=== PATIENT | female | born 1955 | race Caucasian/White ===

== ENCOUNTER 2017-06-01 09:48 | Day surgery (SDC) | payer OTHER ==
[~2017-06-01 09:48] MED LIST: LACTATED RINGERS 1,000 ML IV SCH; LIDOCAINE 1% 20 ML VIAL (10MG/ML) FOR IV START INTRADERMA PRN
[2017-06-01 10:56] VITALS: RESP 16; TEMP 97.2
[2017-06-01] MEDS ORDERED: PROPOFOL 10 MG/ML 20 ML VIAL IV ONE (11:04)
--- NOTE | 2017-06-01 11:34 | P.PCN ---
Date of Procedure: 06/01/17 Procedure(s) Performed: BRIEF HISTORY: Patient is a 61-year-old pleasant white female, scheduled for an elective colonoscopy as a part of screening for colorectal rectal neoplasia. PROCEDURE PERFORMED: Colonoscopy. PREOPERATIVE DIAGNOSIS: Screening for colon cancer]. IV sedation per Anesthesia. PROCEDURE: After informed consent was obtained, the patient, was brought into the endoscopy unit. IV sedation was administered by Anesthesia under continuous monitoring. Digital rectal examination was normal. Initially the Olympus CF- 160 flexible video colonoscope was then inserted in the rectum, gradually advanced into the cecum without any difficulty. Careful examination was performed as the scope was gradually being withdrawn. Ileocecal valve and the appendiceal orifice were visualized and appeared normal. Prep was excellent. Mucosa of the cecum, ascending colon, transverse colon, descending colon, sigmoid colon, and rectum appeared normal. Retroflexion was performed in the rectum and no lesions were seen. The patient tolerated the procedure well. IMPRESSION: Normal-appearing colon from rectum to cecum with no evidence of colorectal neoplasia. RECOMMENDATIONS: Findings of this examination were discussed with the patient as well as a family. She was advised to have a repeat screening colonoscopy in 10 years.
[2017-06-01 12:03] VITALS: BP 152/77; PULSE 51
== END 2017-06-01 12:23 | disposition home or self-care (01) ==
LOC: ORWHC2ENDO 09:48
PROVIDERS: ATTEND Internal Medicine Gastroenterology
DX: Z12.11 Encounter for screening for malignant neoplasm of colon (principal); I10 Essential (primary) hypertension; Z79.899 Other long term (current) drug therapy
CPT/HCPCS: J2704; G0121; 45378

== ENCOUNTER → 2017-06-19 | Outpatient (CLI) | payer OTHER ==
--- NOTE | 2017-06-19 08:22 | MM ---
Reason for exam: additional evaluation requested from abnormal screening. Last mammogram was performed less than 1 month ago. History: Patient is postmenopausal. Family history of breast cancer in maternal aunt. Physical Findings: Nurse did not find any significant physical abnormalities on exam. MG 3D Work Up W/Cad RT ML, ML with magnification, and CC with magnification view(s) were taken of the right breast. Prior study comparison: June 07, 2017, bilateral MG 3d screening mammo w/cad. May 22, 2016, bilateral MG 3d screening mammo w/cad. The breast tissue is heterogeneously dense. This may lower the sensitivity of mammography. Right upper outer quadrant calcifications are retrospectively similar to 2015, rounded in morphology and appear benign. These results were verbally communicated with the patient and result sheet given to the patient on 06/19/17. ASSESSMENT: Benign, BI-RAD 2 RECOMMENDATION: Return to routine screening mammogram schedule for both breasts.
== END | disposition home or self-care (01) ==
LOC: RADMAMWWP 07:00
PROVIDERS: ATTEND Family Medicine
DX: R92.8 Other abnormal and inconclusive findings on diagnostic imaging of breast (principal)
CPT/HCPCS: 77065; G0279

== ENCOUNTER 2017-08-21 11:45 | Inpatient (IN) | payer OTHER ==
[2017-08-21 11:59] LABS: Glucose,Whole Blood 70 mg/dL (75-99)
[2017-08-21] MEDS ORDERED: LABETALOL 5 MG/ML VIAL MDV IVP STA (12:01)
[2017-08-21 12:11] LABS: Basophils % (A) 0 %; Eosinophils # (A) 0.2 k/uL (0-0.7); Eosinophils % (A) 3 %; HCT 40.9 % (34.0-46.0); HGB 14.5 gm/dL (11.4-16.0); Lymphocytes # (A) 3.1 k/uL (1.0-4.8); Lymphocytes % (A) 37 %; MCH 29.9 pg (25.0-35.0); MCHC 35.5 g/dL (31.0-37.0); MCV 84.2 fL (80.0-100.0); Mean Platelet Volume 7.1; Monocytes # (A) 0.5 k/uL (0-1.0); Monocytes % (A) 6 %; Neutrophils # (A) 4.2 k/uL (1.3-7.7); Neutrophils % (A) 50 %; Platelet Count 236 k/uL (150-450); RBC 4.86 m/uL (3.80-5.40); RDW 12.4 % (11.5-15.5); WBC 8.4 k/uL (3.8-10.6)
[2017-08-21 12:21] LABS: Calcium 10.2 mg/dL (8.4-10.2); Potassium 3.2 mmol/L (3.5-5.1); Total Bilirubin 0.8 mg/dL (0.2-1.3); Total Protein 8.5 g/dL (6.3-8.2)
[2017-08-21 12:32] LABS: INR 1.1 (<1.2); Partial Thromboplastin Time 25.2 sec (22.0-30.0); Prothrombin Time 10.5 sec (9.0-12.0)
[2017-08-21 12:42] LABS: Creatine Kinase 61 U/L (30-135)
--- NOTE | 2017-08-21 12:43 | CT ---
EXAMINATION TYPE: CT brain wo con for TPA DATE OF EXAM: 08/21/2017 COMPARISON: NONE HISTORY: Aphasia, Lt facial droop CT DLP: 1012.7 mGycm Automated exposure control for dose reduction was used. Helical acquisition through the brain. FINDINGS: No hemorrhage or hydrocephalus. No mass effect. Atheromatous changes are present within the cerebral vasculature. Periventricular white matter shows patchy low attenuation. Cortical atrophy is likely ag e-related. Calvarium is intact. Minimal inflammatory change noted in the left ethmoid air cells, maxi llary sinus, postop changes noted. IMPRESSION: NO ACUTE BRAIN ABNORMALITY IS EVIDENT. NONSPECIFIC WHITE MATTER DEMYELINATION. ADDITIONAL FINDINGS AB OVE.
[2017-08-21 12:54] LABS: Creatine Kinase MB 0.3 ng/mL (0.0-2.4); Troponin I <0.012 ng/mL (0.000-0.034)
[2017-08-21] MEDS ORDERED: NALOXONE 0.4 MG/ML 1 ML VIAL IV PRN (13:01)
[2017-08-21] MEDS ORDERED: ONDANSETRON 4 MG/2 ML VIAL IVP PRN (13:01)
--- NOTE | 2017-08-21 13:01 | ED ---
Neuro HPI - General Chief Complaint: Neuro Symptoms/Deficit Stated Complaint: Not able to talk/headache Time Seen by Provider: 08/21/17 11:58 Source: patient Mode of arrival: wheelchair Limitations: no limitations - History of Present Illness Is the patient presenting with stroke symptoms?: Yes Initial Comments: Patient presents with acute onset difficulty speaking as well as right-sided weakness. Her symptoms began one hour ago. Nothing makes it better or worse. She has taken no medications. She has not experienced this before. She has no chest pain or shortness of breath. She has no belly or back pain. She has no nausea or vomiting. She has no lightheadedness or dizziness. She had no loss of continence. She has no urinary retention. She denies injuries. She denies sick contacts. She has no pain or swelling in the arms or legs. - Related Data Home Medications: Home Medications Medication Instructions Recorded Confirmed Cholecalciferol [Vitamin D3] 1 tab PO DAILY 05/31/17 08/21/17 Magnesium 1 tab PO DAILY 05/31/17 08/21/17 Metoprolol Succinate [Toprol XL] 25 mg PO HS 05/31/17 08/21/17 [place]-3 Fatty Acids/Fish Oil [Fish 1 cap PO DAILY 05/31/17 08/21/17 Oil 1,000 mg Softgel] PARoxetine [Paxil] 20 mg PO HS 05/31/17 08/21/17 Valsartan/Hydrochlorothiazide 1 tab PO QAM 05/31/17 08/21/17 [Valsartan-Hctz 320-12.5 mg Tab] Allergies/Adverse Reactions: Allergies Allergy/AdvReac Type Severity Reaction Status Date / Time No Known Allergies Allergy Verified 08/21/17 12:20 Review of Systems ROS Statement: Those systems with pertinent positive or pertinent negative responses have been documented in the HPI. ROS Other: All systems not noted in ROS Statement are negative. General Exam Limitations: no limitations General appearance: alert, in no apparent distress Head exam: Present: atraumatic, normocephalic, normal inspection Eye exam: Present: normal appearance, PERRL, EOMI. Absent: scleral icterus, conjunctival injection, periorbital swelling ENT exam: Present: normal exam, mucous membranes moist Neck exam: Present: normal inspection. Absent: tenderness, meningismus, lymphadenopathy Respiratory exam: Present: normal lung sounds bilaterally. Absent: respiratory distress, wheezes, rales, rhonchi, stridor Cardiovascular Exam: Present: regular rate, normal rhythm, normal heart sounds. Absent: systolic murmur, diastolic murmur, rubs, gallop, clicks GI/Abdominal exam: Present: soft, normal bowel sounds. Absent: distended, tenderness, guarding, rebound, rigid Extremities exam: Present: normal inspection, full ROM, normal capillary refill. Absent: tenderness, pedal edema, joint swelling, calf tenderness Back exam: Present: normal inspection Neurological exam: Present: alert, oriented X3, CN II-XII intact, abnormal gait , motor sensory deficit Psychiatric exam: Present: normal affect, normal mood Skin exam: Present: warm, dry, intact, normal color. Absent: rash Stroke MDM - Lab Data Result diagrams: 08/21/17 12:01 08/21/17 12:01 Lab Results 08/21/17 08/21/17 08/21/17 Range/Units 11:58 12:01 12:01 WBC 8.4 (3.8-10.6) k/uL RBC 4.86 (3.80-5.40) m/uL Hgb 14.5 (11.4-16.0) gm/dL Hct 40.9 (34.0-46.0) % MCV 84.2 (80.0-100.0) fL MCH 29.9 (25.0-35.0) pg MCHC 35.5 (31.0-37.0) g/dL RDW 12.4 (11.5-15.5) % Plt Count 236 (150-450) k/uL Neutrophils % 50 % Lymphocytes % 37 % Monocytes % 6 % Eosinophils % 3 % Basophils % 0 % Neutrophils # 4.2 (1.3-7.7) k/uL Lymphocytes # 3.1 (1.0-4.8) k/uL Monocytes # 0.5 (0-1.0) k/uL Eosinophils # 0.2 (0-0.7) k/uL Basophils # 0.0 (0-0.2) k/uL PT (9.0-12.0) sec INR (<1.2) APTT (22.0-30.0) sec Sodium 140 (137-145) mmol/L Potassium 3.2 L (3.5-5.1) mmol/L Chloride 99 (98-107) mmol/L Carbon Dioxide 28 (22-30) mmol/L Anion Gap 13 mmol/L BUN 18 H (7-17) mg/dL Creatinine 0.86 (0.52-1.04) mg/dL Est GFR (CKD-EPI)AfAm 86 (>60 ml/min/1.73 sqM) Est GFR (CKD-EPI)NonAf 75 (>60 ml/min/1.73 sqM) Glucose 104 H (74-99) mg/dL POC Glucose (mg/dL) 70 L (75-99) mg/dL POC Glu Deliverer Outside ID PetitprenBalbirn Calcium 10.2 (8.4-10.2) mg/dL Total Bilirubin 0.8 (0.2-1.3) mg/dL AST 23 (14-36) U/L ALT 23 (9-52) U/L Alkaline Phosphatase 90 (38-126) U/L Total Creatine Kinase (30-135) U/L CK-MB (CK-2) (0.0-2.4) ng/mL CK-MB (CK-2) Rel Index Troponin I (0.000-0.034) ng/mL Total Protein 8.5 H (6.3-8.2) g/dL Albumin 5.0 (3.5-5.0) g/dL 08/21/17 08/21/17 Range/Units 12:01 12:01 WBC (3.8-10.6) k/uL RBC (3.80-5.40) m/uL Hgb (11.4-16.0) gm/dL Hct (34.0-46.0) % MCV (80.0-100.0) fL MCH (25.0-35.0) pg MCHC (31.0-37.0) g/dL RDW (11.5-15.5) % Plt Count (150-450) k/uL Neutrophils % % Lymphocytes % % Monocytes % % Eosinophils % % Basophils % % Neutrophils # (1.3-7.7) k/uL Lymphocytes # (1.0-4.8) k/uL Monocytes # (0-1.0) k/uL Eosinophils # (0-0.7) k/uL Basophils # (0-0.2) k/uL PT 10.5 (9.0-12.0) sec INR 1.1 (<1.2) APTT 25.2 (22.0-30.0) sec Sodium (137-145) mmol/L Potassium (3.5-5.1) mmol/L Chloride (98-107) mmol/L Carbon Dioxide (22-30) mmol/L Anion Gap mmol/L BUN (7-17) mg/dL Creatinine (0.52-1.04) mg/dL Est GFR (CKD-EPI)AfAm (>60 ml/min/1.73 sqM) Est GFR (CKD-EPI)NonAf (>60 ml/min/1.73 sqM) Glucose (74-99) mg/dL POC Glucose (mg/dL) (75-99) mg/dL POC Glu Deliverer Outside ID Calcium (8.4-10.2) mg/dL Total Bilirubin (0.2-1.3) mg/dL AST (14-36) U/L ALT (9-52) U/L Alkaline Phosphatase (38-126) U/L Total Creatine Kinase 61 (30-135) U/L CK-MB (CK-2) 0.3 (0.0-2.4) ng/mL CK-MB (CK-2) Rel Index 0.5 Troponin I <0.012 (0.000-0.034) ng/mL Total Protein (6.3-8.2) g/dL Albumin (3.5-5.0) g/dL - Medical Decision Making Patient presents with trouble speaking, weakness on the right side. Initially she had an NIH stroke scale of 3. I ordered IV labetalol and IV nicardipine drip. CT of the head is negative. Her symptoms resolved on their own. I will consult neurology. Patient will be admitted to the hospital. 08/21/17 13:00 Twelve-lead EKG interpreted by me as showing ventricular rate 66 bpm, normal HI interval and QRS complexes, no ST elevation or depression, interpreted by me as normal sinus rhythm. Past Medical History Past Medical History: Hypertension History of Any Multi-Drug Resistant Organisms: None Reported Past Surgical History: Section, Tubal Ligation Past Anesthesia/Blood Transfusion Reactions: Postoperative Nausea & Vomiting ( PONV) Past Psychological History: Anxiety, Depression Smoking Status: Never smoker Past Alcohol Use History: Rare Past Drug Use History: None Reported - Past Family History Mother Family Medical History: No Reported History Course Vital Signs 08/21/17 08/21/17 08/21/17 11:50 12:00 12:15 Temperature 97 F L Pulse Rate 66 64 56 L Respiratory 16 18 18 Rate Blood Pressure 197/92 209/88 194/79 O2 Sat by Pulse 100 100 100 Oximetry 08/21/17 12:30 Temperature Pulse Rate 61 Respiratory 18 Rate Blood Pressure 159/74 O2 Sat by Pulse 99 Oximetry Critical Care Time Critical Care Time: Yes Total Critical Care Time: 35 Disposition Clinical Impression: Transient cerebral ischemia Disposition: ADMITTED IP TO THIS HOSP Condition: Fair Referrals: Kimberly Parker DO [Primary Care Provider] - 1-2 days Time of Disposition: 13:01
--- NOTE | 2017-08-21 13:05 | CT ---
EXAMINATION TYPE: CT angio head neck DATE OF EXAM: 08/21/2017 HISTORY: Aphasia, Lt facial droop COMPARISON: CT head same date CT DLP: 254.8 mGycm. Automated Exposure Control for Dose Reduction was Utilized. TECHNIQUE: CTA scan of the neck is performed with IV Contrast, patient injected with 65 mL of Omnipa que 350, axial images are obtained, coronal and sagittal reformatted images are reviewed. Three-D rec onstructed images are created on an independent workstation and reviewed. FINDINGS: Carotid/Vascular Structures: There are 3 super aortic branch vessels. The transverse aorta, left and right common carotid, innominate, left and right subclavian arteries are patent, the vertebral arteri es are patent and codominant. There is no filling defect to suggest embolus or dissection. The internet cafe manager al and external carotid arteries are patent, there is no evidence stenosis of the proximal internal c arotid arteries. Anterior and posterior circulations are patent. No evident aneurysm. 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 IMPRESSION: No significant abnormality is seen.
--- NOTE | 2017-08-21 13:55 | XR ---
EXAMINATION TYPE: XR chest 2V DATE OF EXAM: 08/21/2017 COMPARISON: NONE TECHNIQUE: PA and lateral views submitted. HISTORY: Altered mental status FINDINGS: The lungs are clear and there is no pneumothorax, pleural effusion, or focal pneumonia. Degenerativ e change of the spine. Biapical pleural. Diffuse osteopenia. No overt failure. IMPRESSION: 1. No acute process.
[2017-08-21] MEDS: HYDROCHLOROTHIAZIDE 12.5 MG CAP PO SCH (14:26)
[2017-08-21] MEDS: VALSARTAN 160 MG TAB PO SCH (14:26)
[2017-08-21] MEDS ORDERED: Potassium Replacement Protocol 1 EACH MISC MISCELLANE PRN (16:56)
[2017-08-21] MEDS: POTASSIUM CHLORIDE ER 20 MEQ TAB.ER PO SCH ×2 (17:33→18:40)
--- NOTE | 2017-08-21 20:43 | P.CNNES ---
History of Present Illness Consult date: 08/21/17 Reason for Consult: Patient admitted with blurred vision and speech impairment. History of Present Illness: This patient is a 61-year-old left-handed white female who states that she was doing fairly well until early this morning. Patient stated that she was having difficulty with vision involving her right eye. She stated that the vision was blurry and she could not see very well. She also noted at this same time that she was having word finding difficulties. She was concerned with her symptoms and decided to come to the emergency room for further evaluation. On further questioning she states she had a similar episode about 6 months ago. That episode only lasted 20 minutes and resolved. The patient's current symptoms of right-sided visual blurring and speech impairment seem to take a longer time to resolve. She was brought into the emergency room and was seen by Dr. Dahl. His initial evaluation revealed her NIH stroke scale to be 2 and a repeat NIH evaluation to be 1. Her speech did clear in the emergency room and she has had no further recurrence of slurred speech or word finding difficulties. She was sent for a CTA angiogram of the head and neck as well as a computed tomography scan of the brain. A CAT scan of the brain revealed no acute brain abnormality. Nonspecific white matter changes were noted. CTA angiogram of the head and neck revealed no significant abnormality. Patient was advised admission for further evaluation for stroke. The patient denies any previous history of stroke. She did have that one episode 6 months ago but did not seek any medical attention for that condition. She has not been taking any aspirin on any regular basis. The patient was admitted to the medical floor. Her neurological examination today at bedside reveals her to have slight disconjugate eye gaze involving the right eye. It appears that there is evidence for upright medial rectus muscle weakness. There is also slight ptosis noted in the right eyelid. Given these findings we have recommended the patient should be evaluated for possibility of brainstem stroke. We are recommending an MRI and MRA to be done for further evaluation. The patient also should be placed on 1 aspirin 81 mg daily for secondary stroke prevention. We will also obtain a full evaluation for stroke. Her CTA angiogram of the head and neck was negative. Pending these test results further recommendations will be given. Neurology is now been consulted for further evaluation and recommendations. Review of Systems Constitutional: Denies chills, Denies fever Eyes: denies blurred vision, denies pain Ears, nose, mouth and throat: Denies headache, Denies sore throat Cardiovascular: Denies chest pain, Denies shortness of breath Respiratory: Denies cough Gastrointestinal: Denies abdominal pain, Denies diarrhea, Denies nausea, Denies vomiting Genitourinary: Denies dysuria, Denies hematuria Musculoskeletal: Denies myalgias Integumentary: Denies pruritus, Denies rash Neurological: Reports aphasia, Reports loss of vision, Reports paresthesias, Denies numbness, Denies weakness Psychiatric: Denies anxiety, Denies depression Endocrine: Denies fatigue, Denies weight change Past Medical History Past Medical History: Hypertension Additional Past Medical History / Comment(s): "borderline high cholesterol." History of Any Multi-Drug Resistant Organisms: None Reported Past Surgical History: Section, Tubal Ligation Additional Past Surgical History / Comment(s): 05/2017 colonoscopy Past Anesthesia/Blood Transfusion Reactions: No Reported Reaction, Postoperative Nausea & Vomiting (PONV) Smoking Status: Never smoker - Past Family History Mother Family Medical History: No Reported History Additional Family Medical History / Comment(s): Mother lived to be 90yrs old. Father Family Medical History: Coronary Artery Disease (CAD), CVA/TIA Additional Family Medical History / Comment(s): Father is at the age of 63yrs. He had a CVA. Medications and Allergies Home Medications Medication Instructions Recorded Confirmed Type Cholecalciferol [Vitamin D3] 1 tab PO DAILY 05/31/17 08/21/17 History Magnesium 1 tab PO DAILY 05/31/17 08/21/17 History Metoprolol Succinate [Toprol XL] 25 mg PO HS 05/31/17 08/21/17 History [place]-3 Fatty Acids/Fish Oil [Fish 1 cap PO DAILY 05/31/17 08/21/17 History Oil 1,000 mg Softgel] PARoxetine [Paxil] 20 mg PO HS 05/31/17 08/21/17 History Valsartan/Hydrochlorothiazide 1 tab PO QAM 05/31/17 08/21/17 History [Valsartan-Hctz 320-12.5 mg Tab] Allergies Allergy/AdvReac Type Severity Reaction Status Date / Time No Known Allergies Allergy Verified 08/21/17 12:20 Physical Examination - Vital Signs Vital Signs: Vital Signs Temp Pulse Pulse Resp BP BP Pulse Ox 08/21/17 16:30 98.4 F 58 L 16 152/76 100 08/21/17 16:00 98.4 F 59 L 18 144/83 98 08/21/17 14:41 65 18 150/82 96 08/21/17 13:30 59 L 18 152/78 100 08/21/17 13:00 58 L 18 173/89 100 08/21/17 12:45 60 18 164/84 100 08/21/17 12:30 61 18 159/74 99 08/21/17 12:15 56 L 18 194/79 100 08/21/17 12:00 64 18 209/88 100 08/21/17 11:50 97 F L 66 16 197/92 100 Intake and Output 08/21/17 08/21/17 08/21/17 06:59 14:59 22:59 Intake Total 240 Balance 240 Intake: Oral 240 Other: Weight 65.771 kg Patient Weight 08/22/17 06:59 Weight 65.771 kg - Constitutional General appearance: average body habitus, cooperative - EENT EENT: PERRL, mucous membranes moist - Respiratory Respiratory: lungs clear, normal breath sounds - Cardiovascular Cardiovascular: regular rate, normal S1, normal S2 Extremities: no peripheral edema bilaterally - Gastrointestinal Gastrointestinal: normoactive bowel sounds - Integumentary Integumentary: normal - Neurologic Cranial nerve examination: PERRL, EOMI (Patient has evidence of disconjugate eye gaze. There is suggestion of a right medial rectus muscle weakness. She denies any diplopia.), ptosis (Patient has slight right eyelid ptosis.), V1/V2/ V3 grossly intact, face symmetric, tongue midline, intact gag reflex, intact corneal reflex, normal palatal elevation Speech examination: intact Sensorimotor examination: intact Motor examination - right side: 4/5: biceps, triceps, wrist flexion, wrist extension, remote sensing technician, hip flexors, knee extensors, dorsiflexion, toe extension (EHL) , plantarflexion Motor examination - left side: 4/5: biceps, triceps, wrist flexion, wrist extension, remote sensing technician, hip flexors, knee extensors, dorsiflexion, toe extension (EHL) , plantarflexion Detailed sensory examination: intact Reflex and gait examination: intact Reflexes: 1+: ankle, bicep, knee, tricep - Musculoskeletal Musculoskeletal: no pain - Psychiatric Psychiatric: mood/affect appropriate, cooperative Results - Laboratory Findings CBC and BMP: 08/21/17 12:01 08/21/17 12:01 Abnormal Lab Findings: Abnormal Labs 08/21/17 08/21/17 11:58 12:01 Potassium 3.2 L BUN 18 H Glucose 104 H POC Glucose (mg/dL) 70 L Total Protein 8.5 H Assessment and Plan (1) Brainstem stroke Current Visit: Yes Status: Acute Code(s): I63.9 - CEREBRAL INFARCTION, UNSPECIFIED SNOMED Code(s): 754535270 (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 Her symptoms quickly resolve after she was admitted to the emergency room. Her NIH stroke scale was noted to be 3.0. She was sent for a CTA angiogram and CT of the brain. Results are as noted above. Her neurological examination reveals her to have evidence of a right medial rectus muscle weakness. This suggests possibility of right third nerve palsy. There is also mild ptosis of the right eyelid. We are recommending the patient to have a MRI MRA of the brain for further evaluation. She should be started on aspirin 81 mg daily for secondary stroke prevention. We will proceed with a complete stroke evaluation for the patient. Would also consider ophthalmology consultation for further evaluation of visual blurring in the right eye as well. Her neurological exam findings were discussed with the patient in detail. She is in agreement with our current recommendations for treatment. We will continue close neurological follow-up with the patient during this admission. Overall prognosis at this time remains guarded. Time with Patient: Greater than 30
[2017-08-21] MEDS: FAMOTIDINE 20 MG TAB PO SCH ×2 (21:37→21:38)
[2017-08-21] MEDS: METOPROLOL SUCCINATE (ER) 25 MG TAB.ER.24H PO SCH (21:37)
[2017-08-21] MEDS: PARoxetine 20 MG TAB PO SCH (21:37)
[2017-08-22 06:33] LABS: Cholesterol 207 mg/dL (<200); HDL Cholesterol 42 mg/dL (40-60); LDL Cholesterol,Calculated 146 mg/dL (0-99); Triglycerides 96 mg/dL (<150)
[2017-08-22] MEDS: HYDROCHLOROTHIAZIDE 12.5 MG CAP PO SCH (07:46)
[2017-08-22] MEDS: CHOLECALCIFEROL 1,000 UNIT TAB PO SCH (07:46)
[2017-08-22] MEDS: MAGNESIUM OXIDE 400 MG TAB PO SCH (07:46)
[2017-08-22] MEDS: FAMOTIDINE 20 MG TAB PO SCH ×2 (07:46→20:20)
[2017-08-22] MEDS: ASPIRIN 325 MG TAB PO SCH (07:47)
[2017-08-22] MEDS: VALSARTAN 160 MG TAB PO SCH (07:47)
--- NOTE | 2017-08-22 15:01 | MR ---
EXAMINATION TYPE: MR brain wo con DATE OF EXAM: 08/22/2017 COMPARISON: CT brain 08/21/2017 HISTORY: 61-year-old female with aphasia and left facial droop, possible brainstem stroke TECHNIQUE: Multiplanar, multisequence images of the brain and brainstem were acquired before without IV contrast. Diffusion weighted imaging is performed. FINDINGS: No evidence for acute infarction, hemorrhage, mass, mass effect, midline shift, herniation, effacemen t of basal cisterns, or extra-axial fluid collection. The ventricles and sulci are age-appropriate. Major intracranial flow voids are intact. T2/FLAIR weighted sequences show very mild scattered periventricular bright white matter change nonsp ecific, likely relating to changes of chronic small vessel ischemic disease. Midline structures demonstrate normal morphology. The craniocervical junction is normal. Minimal mucosal thickening ethmoid air cells and maxillary sinuses. Globes appear intact. IMPRESSION: 1. No acute intracranial abnormality seen. Specifically, no evidence for brainstem stroke on diffusio n sequence. 2. Mild burden of T2 bright white matter change nonspecific, likely relating to chronic small vessel ischemic disease.
--- NOTE | 2017-08-22 15:06 | MR ---
EXAMINATION TYPE: MR angio head wo con DATE OF EXAM: 08/22/2017 COMPARISON: NONE HISTORY: 61-year-old female right 3rd nerve weakness and ptosis TECHNIQUE: High resolution 3-D time of flight images focusing on the [place] were performed without contrast. 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 No aneurysmal change, significant stenosis, arterial occlusion is seen. IMPRESSION: Some congenital variation as above. No significant stenosis, arterial occlusion, or aneurysmal change seen.
[2017-08-22] MEDS: METOPROLOL SUCCINATE (ER) 25 MG TAB.ER.24H PO SCH (20:20)
[2017-08-22] MEDS: PARoxetine 20 MG TAB PO SCH (20:21)
[2017-08-22] MEDS ORDERED: ATORVASTATIN 40 MG TAB PO SCH (21:00)
--- NOTE | 2017-08-22 21:42 | P.HPIM ---
History of Present Illness H&P Date: 08/21/17 Chief Complaint: Difficulty speaking and right-sided weakness Agent is a 61-year-old female with a known history of hypertension came to ER with complaints of difficult speaking and right eye weakness. Patient was having trouble finding words. Patient's symptoms began one hour prior to admission. She also having right eye blurry vision. Patient came to ER for further evaluation. Denied any cough is from production. No chest pain no short of breath no palpitations. Patient had these symptoms before. No nausea vomiting or abdominal pain. No recent illnesses or sick contacts at home. Otherwise denied any dizziness or lightheadedness no loss of consciousness no bladder or bowel incontinence. CT head showed no acute abnormality. Nonspecific white matter changes noted. CTA head and neck showed no significant abnormality. Currently patient had some improvement in symptoms overall. Neurology has been consulted for further evaluation. Carotid duplex and MRI of the brain was ordered. Review of Systems Constitutional: Patient denies any fever or chills . No generalized weakness or weight loss. Abdomen: Patient denied nausea vomiting and diarrhea and abdominal pain. Cardiovascular: Patient denies any chest pain or short of breath no palpitations. Respiratory: patient denied any cough is from production. No shortness of breath Neurologic: Right-eye weakness with difficulty in finding words and right eye blurry vision. Musculoskeletal: Patient denies any complaints of joint swelling or deformity. Skin: Negative Psychiatric: Negative Endocrine: No heat or cold intolerance. No recent weight gain. Genitourinary: No dysuria or hematuria. All other 14 point ROS negative except the above Past Medical History Past Medical History: Hypertension Additional Past Medical History / Comment(s): "borderline high cholesterol." History of Any Multi-Drug Resistant Organisms: None Reported Past Surgical History: Section, Tubal Ligation Additional Past Surgical History / Comment(s): 05/2017 colonoscopy Past Anesthesia/Blood Transfusion Reactions: No Reported Reaction, Postoperative Nausea & Vomiting (PONV) Smoking Status: Never smoker - Past Family History Mother Family Medical History: No Reported History Additional Family Medical History / Comment(s): Mother lived to be 90yrs old. Father Family Medical History: Coronary Artery Disease (CAD), CVA/TIA Additional Family Medical History / Comment(s): Father is at the age of 63yrs. He had a CVA. Medications and Allergies Home Medications Medication Instructions Recorded Confirmed Type Cholecalciferol [Vitamin D3] 1 tab PO DAILY 05/31/17 08/21/17 History Magnesium 1 tab PO DAILY 05/31/17 08/21/17 History Metoprolol Succinate [Toprol XL] 25 mg PO HS 05/31/17 08/21/17 History [place]iells-3 Fatty Acids/Fish Oil [Fish 1 cap PO DAILY 05/31/17 08/21/17 History Oil 1,000 mg Softgel] PARoxetine [Paxil] 20 mg PO HS 05/31/17 08/21/17 History Valsartan/Hydrochlorothiazide 1 tab PO QAM 05/31/17 08/21/17 History [Valsartan-Hctz 320-12.5 mg Tab] Allergies Allergy/AdvReac Type Severity Reaction Status Date / Time No Known Allergies Allergy Verified 08/21/17 12:20 Physical Exam Vitals: Vital Signs Temp Pulse Pulse Resp BP BP Pulse Ox 08/21/17 16:30 98.4 F 58 L 16 152/76 100 08/21/17 16:00 98.4 F 59 L 18 144/83 98 08/21/17 14:41 65 18 150/82 96 08/21/17 13:30 59 L 18 152/78 100 08/21/17 13:00 58 L 18 173/89 100 08/21/17 12:45 60 18 164/84 100 08/21/17 12:30 61 18 159/74 99 08/21/17 12:15 56 L 18 194/79 100 08/21/17 12:00 64 18 209/88 100 08/21/17 11:50 97 F L 66 16 197/92 100 Intake and Output 08/21/17 08/21/17 08/21/17 06:59 14:59 22:59 Intake Total 240 Balance 240 Intake: Oral 240 Other: Weight 65.771 kg Patient Weight 08/22/17 06:59 Weight 65.771 kg PHYSICAL EXAMINATION: Patient is lying in the bed comfortably, no acute distress, awake alert and oriented.. HEENT: Normocephalic. Neck is supple. Pupils reactive. Nostrils clear. Oral cavity is moist. Ears reveal no drainage. Mild right eye ptosis noted Neck reveals no JVD, carotid bruits, or thyromegaly. CHEST EXAMINATION: Trachea is central. Symmetrical expansion. Lung rodríguez clear to auscultation and percussion. CARDIAC: Normal S1, S2 with no gallops. No murmurs ABDOMEN: Soft. Bowel sounds normal. No organomegaly. No abdominal bruits. Extremities: reveal no edema. No clubbing or cyanosis Neurologically awake, alert, oriented x3 with well-coordinated movements. No focal deficits noted Skin: No rash or skin lesions. Psychiatric: Cooperative. Nonsuicidal Musculoskeletal: No joint swelling or deformity. Normal range of motion. Results CBC & Chem 7: 08/21/17 12:01 08/21/17 22:11 Labs: Abnormal Lab Results - Last 24 Hours (Table) 08/21/17 08/21/17 Range/Units 11:58 12:01 Potassium 3.2 L (3.5-5.1) mmol/L BUN 18 H (7-17) mg/dL Glucose 104 H (74-99) mg/dL POC Glucose (mg/dL) 70 L (75-99) mg/dL Total Protein 8.5 H (6.3-8.2) g/dL Thrombosis Risk Factor Assmnt - DVT/VTE Prophylaxis DVT/VTE Prophylaxis: Pharmacologic Prophylaxis ordered - Choose All That Apply Any of the Below Risk Factors Present?: Yes Each Factor Represents 1 point: Age 41-60 years Other Risk Factors: No Other congenital or acquired thrombophilia - If yes, enter type in comment: No Thrombosis Risk Factor Assessment Total Risk Factor Score: 1 Thrombosis Risk Factor Assessment Level: Low Risk Assessment and Plan Assessment: Acute TIA. Possible CVA Expressive aphasia and right eye blurriness. Resolved at this time Hypertension Anxiety Plan: Patient be continued on aspirin. Neurology has been consulted and full stroke workup has been ordered. We will continue the current management.. Patient had CT head and CTA head and neck were done. No acute abnormal to has been noted. Carotid duplex and MRI/MRA were ordered as well. Further recommendations based on the clinical course. Time with Patient: Greater than 30
--- NOTE | 2017-08-22 21:44 | P.PN ---
Subjective Progress Note Date: 08/22/17 Principal diagnosis: TIA Patient is a 61-year-old female with a known history of hypertension came to ER with complaints of difficult speaking and right eye weakness. Patient was having trouble finding words. Patient's symptoms began one hour prior to admission. She also having right eye blurry vision. Patient came to ER for further evaluation. Denied any cough is from production. No chest pain no short of breath no palpitations. Patient had these symptoms before. No nausea vomiting or abdominal pain. No recent illnesses or sick contacts at home. Otherwise denied any dizziness or lightheadedness no loss of consciousness no bladder or bowel incontinence. CT head showed no acute abnormality. Nonspecific white matter changes noted. CTA head and neck showed no significant abnormality. Currently patient had some improvement in symptoms overall. Neurology has been consulted for further evaluation. Carotid duplex and MRI of the brain was ordered. 08/22/2017 Today patient denied any difficulty in speaking. Right eye blurry vision is completely resolved. Patient had MRI/MRa today which did not reveal any acute CVA. Chronic small vessel ischemic changes were noted. No commerce of chest pain or shortness of breath. No nausea vomiting or abdominal pain. Patient otherwise tolerating oral diet. All other review of systems negative except the above Current medications reviewed Objective - Vital Signs Vital signs: Vital Signs Temp 97.8 F 08/22/17 15:19 Pulse 50 L 08/22/17 15:48 Resp 14 08/22/17 15:19 BP 109/60 08/22/17 15:19 Pulse Ox 98 08/22/17 15:19 Intake & Output 08/22/17 08/22/17 08/23/17 06:59 18:59 06:59 Intake Total 300 840 Balance 300 840 Weight 66 kg Intake: Oral 300 840 Other: Voiding Method Toilet # Voids 1 1 - Exam PHYSICAL EXAMINATION: Patient is lying in the bed comfortably, no acute distress, awake alert and oriented.. HEENT: Normocephalic. Neck is supple. Pupils reactive. Nostrils clear. Oral cavity is moist. Ears reveal no drainage. Neck reveals no JVD, carotid bruits, or thyromegaly. CHEST EXAMINATION: Trachea is central. Symmetrical expansion. Lung rodríguez clear to auscultation and percussion. CARDIAC: Normal S1, S2 with no gallops. No murmurs ABDOMEN: Soft. Bowel sounds normal. No organomegaly. No abdominal bruits. Extremities: reveal no edema. No clubbing or cyanosis Neurologically awake, alert, oriented x3 with well-coordinated movements. No focal deficits noted Skin: No rash or skin lesions. Psychiatric: Coperative. Nonsuicidal Musculoskeletal: No joint swelling or deformity. Normal range of motion. - Labs CBC & Chem 7: 08/21/17 12:01 08/21/17 22:11 Labs: Abnormal Lab Results - Last 24 Hours (Table) 08/22/17 Range/Units 05:52 Cholesterol 207 H (<200) mg/dL LDL Cholesterol, Calc 146 H (0-99) mg/dL Assessment and Plan Assessment: Acute TIA. Possible CVA Expressive aphasia and right eye blurriness. Resolved at this time Hypertension Anxiety Plan: Patient will be continued on aspirin. Neurology is following and full stroke workup has been ordered. We will continue the current management.. Patient had CT head and CTA head and neck were done. No acute abnormal to has been noted. Carotid duplex and MRI/MRA were done today. Further recommendations based on the clinical course.
[2017-08-22 21:49] VITALS: RESP 16
--- NOTE | 2017-08-23 00:27 | P.PN ---
Subjective Progress Note Date: 08/22/17 This patient is a 61-year-old female who was admitted to hospital with symptoms yesterday of blurred vision and difficulty with speech. Her visual problems only affected her right eye. On neurological examination yesterday she revealed evidence suggesting possibility of right medial rectus muscle weakness. This suggested a questionable brainstem ischemic event or stroke. She was recommended to undergo MRI and MRA of the brain today. MRI of the brain was completed today and revealed no acute intracranial abnormality. Specifically no evidence for brainstem stroke on diffusion-weighted imaging. MRA [place] revealed some congenital variation. There was no significant stenosis, arterial occlusion, or aneurysm seen. We reviewed the results of the MRI and MRA today with the patient. She states her symptoms involving the right eye are much improved today. Ophthalmology was consulted but has not yet seen the patient. We have recommended patient to be maintained on aspirin daily for secondary stroke prevention. Her neurological examination is otherwise nonfocal. The patient was happy to learn that there was no evidence of acute stroke. Patient may be considered for discharge home tomorrow. She may follow-up in the outpatient clinic in 3-4 weeks. Objective - Vital Signs Vital signs: Vital Signs Temp 96.3 F L 08/22/17 20:20 Pulse 49 L 08/22/17 20:20 Resp 16 08/22/17 20:20 BP 119/67 08/22/17 20:20 Pulse Ox 97 08/22/17 20:20 Intake & Output 08/22/17 08/22/17 08/23/17 06:59 18:59 06:59 Intake Total 300 840 150 Balance 300 840 150 Weight 66 kg Intake: Oral 300 840 150 Other: Voiding Method Toilet Toilet # Voids 1 1 1 - Exam Physical examination: PHYSICAL EXAMINATION: Patient is resting comfortably in bed. VITAL SIGNS: Blood pressure is [125/69]. Heart rate is [53]. Respiration is [16] . Temperature is [97.4]. HEENT: Head is atraumatic, neck is supple, there were no carotid bruits. CHEST: Lungs are clear to auscultation and percussion. CARDIAC: S1, S2 normal rate and rhythm. There is no murmur. ABDOMEN: Soft and nontender. Bowel sounds are present. EXTREMITIES: There is no pedal edema. Peripheral pulses are present. Neurological examination: Patient has a nonfocal neurological examination today. Her speech is remained clear since admission. I exam still reveals slight right needle rectus weakness. Remaining neurological examination is nonfocal. 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 She presented with blurriness in her right eye as well as some speech impairment. She was sent for MRI MRA of the brain today results of which are noted above. No evidence for acute stroke or aneurysm. The patient is awaiting consultation with ophthalmology. We are recommending she be maintained on aspirin daily for secondary stroke prevention. She may be considered for discharge home and should schedule a follow-up in the outpatient neurology clinic in 3-4 weeks. Her neurological examination otherwise is nonfocal. Her blurriness in the right eye also has resolved. We will continue close neurological follow-up for the patient during this admission.
[2017-08-23] MEDS: VALSARTAN 160 MG TAB PO SCH (09:12)
[2017-08-23] MEDS: MAGNESIUM OXIDE 400 MG TAB PO SCH (09:12)
[2017-08-23] MEDS: CHOLECALCIFEROL 1,000 UNIT TAB PO SCH (09:12)
[2017-08-23] MEDS: HYDROCHLOROTHIAZIDE 12.5 MG CAP PO SCH (09:13)
[2017-08-23] MEDS: ASPIRIN 325 MG TAB PO SCH (09:13)
[2017-08-23] MEDS: FAMOTIDINE 20 MG TAB PO SCH (09:17)
[2017-08-23 09:19] VITALS: PULSE 58
[2017-08-23 18:42] VITALS: BP 136/72; TEMP 98.1
== END 2017-08-23 18:18 | disposition home or self-care (01) | DRG 65 ==
LOC: EC 11:45 → 6SEL 13:01
PROVIDERS: ADMIT Hospitalist; ATTEND Hospitalist
DX: I63.9 Cerebral infarction, unspecified (principal); G45.9 Transient cerebral ischemic attack, unspecified; H49.01 Third [oculomotor] nerve palsy, right eye; R47.01 Aphasia; E78.00 Pure hypercholesterolemia, unspecified; F41.9 Anxiety disorder, unspecified; I10 Essential (primary) hypertension; H53.8 Other visual disturbances; M62.81 Muscle weakness (generalized); F32.9 Major depressive disorder, single episode, unspecified; Z79.899 Other long term (current) drug therapy; Z82.49 Family history of ischemic heart disease and other diseases of the circulatory system
CPT/HCPCS: 36415; 70450; 70496; 70498; 70544; 70551; 71046; 80053; 80061; 82550; 82553; 84132; 84484; 85025; 85610; 85730; 93005; 94760; 99291

== ENCOUNTER → 2017-09-28 | Outpatient (CLI) | payer OTHER | END | disposition home or self-care (01) | LOC: LABWHC1 11:40 | PROVIDERS: ATTEND Psychiatry & Neurology Neurology | DX: H02.403 Unspecified ptosis of bilateral eyelids (principal) | CPT/HCPCS: 36415; 83519; 86255 ==

== ENCOUNTER → 2018-07-26 | Outpatient (CLI) | payer OTHER ==
--- NOTE | 2018-07-29 11:39 | MM ---
Reason for exam: screening (asymptomatic). Last mammogram was performed 1 year and 1 month ago. History: Patient is postmenopausal. Family history of breast cancer in maternal aunt. Physical Findings: A clinical breast exam by your physician is recommended on an annual basis and results should be correlated with mammographic findings. MG 3D Screening Mammo W/Cad Bilateral CC and MLO view(s) were taken. Prior study comparison: June 19, 2017, right breast MG 3d work up w/cad RT. June 07, 2017, bilateral MG 3d screening mammo w/cad. The breast tissue is heterogeneously dense. This may lower the sensitivity of mammography. Nodular density and calcifications upper outer right breast posterior third position. ASSESSMENT: Incomplete: need additional imaging evaluation, BI-RAD 0 RECOMMENDATION: Special view mammogram of the right breast. If lesion persists on supplemental views, image directed ultrasound is recommended. [facility] will attempt to contact patient to return for supplemental views and ultrasound if indicated.
== END | disposition home or self-care (01) ==
LOC: RADMAMWWP 10:12
PROVIDERS: ATTEND Family Medicine
DX: Z12.31 Encounter for screening mammogram for malignant neoplasm of breast (principal)
CPT/HCPCS: 77063; 77067

== ENCOUNTER → 2018-08-09 | Outpatient (CLI) | payer OTHER ==
--- NOTE | 2018-08-09 12:02 | MM ---
Reason for exam: additional evaluation requested from abnormal screening. Last mammogram was performed less than 1 month ago. History: Patient is postmenopausal. Family history of breast cancer in maternal aunt. Physical Findings: Nurse did not find any significant physical abnormalities on exam. MG 3D Work Up W/Cad RT CC and MLO view(s) were taken of the right breast. Prior study comparison: July 26, 2018, bilateral MG 3d screening mammo w/cad. June 19, 2017, right breast MG 3d work up w/cad RT. June 07, 2017, bilateral MG 3d screening mammo w/cad. The breast tissue is heterogeneously dense. This may lower the sensitivity of mammography. Finding: There are segmental fine calcifications in the upper outer quadrant, middle position of the right breast 6cm from the nipple. No significant changes in finding since June 07, 2017. These results were verbally communicated with the patient and result sheet given to the patient on 08/09/18. ASSESSMENT: Probably benign, BI-RAD 3 RECOMMENDATION: Follow-up diagnostic mammogram of the right breast in 6 months. (magnification view CC/MLO)
== END | disposition home or self-care (01) ==
LOC: RADMAMWWP 10:24
PROVIDERS: ATTEND Family Medicine
DX: R92.8 Other abnormal and inconclusive findings on diagnostic imaging of breast (principal)
CPT/HCPCS: 77061; 77065

== ENCOUNTER → 2018-08-13 | Outpatient (CLI) | payer OTHER ==
[2018-08-13 14:55] VITALS: BP 141/73; PULSE 67; RESP 16; TEMP 96.7; BMI 24.6
--- NOTE | 2018-08-13 18:00 | P.HPOB ---
History of Present Illness H&P Date: 08/13/18 Chief Complaint: The patient is here for her routine gynecologic exam. This is a 62-year-old with an LMP of 2011. The patient is here to establish with this office. She is without gynecologic complaints. She denies any postmenopausal bleeding. Her last pelvic exam was about 3 years ago. Review of Systems The patient has gained 7 pounds over the last year. She denies respiratory, cardiac, or G.I. problems. Past Medical History Past Medical History: CVA/TIA (TIA in August 2017.), Hyperlipidemia, Hypertension Additional Past Medical History / Comment(s): "borderline high cholesterol." TIA 08/2017 with no residual deficits. 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 History of Any Multi-Drug Resistant Organisms: None Reported Past Surgical History: Section (x2), Tubal Ligation Additional Past Surgical History / Comment(s): 05/2017 colonoscopy(next 10yrs). Past Anesthesia/Blood Transfusion Reactions: No Reported Reaction, Postoperative Nausea & Vomiting (PONV) Past Psychological History: Anxiety, Depression Additional Psychological History / Comment(s): Pt resides with her spouse. She states her depression is stable. She is independent. Smoking Status: Never smoker Past Alcohol Use History: Occasional (2 per week) Past Drug Use History: None Reported Additional History: She's been since 2012 and this is her 2nd marriage. She is a retired elementary allied health teacher. - Past Family History Mother Family Medical History: No Reported History Additional Family Medical History / Comment(s): Mother lived to be 90yrs old. Maternal aunts (2) had breast cancer. Father Family Medical History: Coronary Artery Disease (CAD), CVA/TIA, Myocardial Infarction (ND) Additional Family Medical History / Comment(s): Father is at the age of 63yrs. He had a CVA. Brother(s) Family Medical History: Coronary Artery Disease (CAD) Medications and Allergies Home Medications Medication Instructions Recorded Confirmed Type Cholecalciferol [Vitamin D3] 1 tab PO DAILY 05/31/17 08/13/18 History Metoprolol Succinate [Toprol XL] 25 mg PO HS 05/31/17 08/13/18 History PARoxetine [Paxil] 20 mg PO HS 05/31/17 08/13/18 History Valsartan/Hydrochlorothiazide 1 tab PO QAM 05/31/17 08/13/18 History [Valsartan-Hctz 320-12.5 mg Tab] Aspirin 325 mg PO DAILY #30 tab 08/23/17 08/13/18 Rx Atorvastatin [Lipitor] 20 mg PO HS #30 tablet 08/23/17 08/13/18 Rx Allergies Allergy/AdvReac Type Severity Reaction Status Date / Time No Known Allergies Allergy Verified 08/13/18 14:44 Exam Vital Signs Temp Pulse Resp BP Pulse Ox 08/13/18 14:51 96.7 F L 67 16 141/73 97 Intake and Output 08/13/18 08/13/18 08/13/18 06:59 14:59 22:59 Other: Weight 67.132 kg Height 5'5", weight 148 pounds, BMI 24.6. This is a well-developed well-nourished white female who is alert and oriented times 3 in no acute distress. HEENT: Within normal limits. NECK: Supple without mass or thyromegaly. CHEST AND LUNGS: Clear to auscultation. HEART: Regular rate and rhythm. BREASTS: Are without mass or discharge. AXILLARY EXAM: Negative for adenopathy. BACK: Negative for CVA tenderness. ABDOMEN: Soft, nontender, without palpable masses. PELVIC EXAM: Normal external genitalia with mild atrophy. Cervix and vagina appear normal with mild to moderate atrophy. There is no unusual discharge. There is no evidence of prolapse. The uterus is midposition, nongravid size and nontender. There are no palpable adnexal masses or tenderness. RECTAL EXAM: rectovaginal exam is negative for mass or tenderness and is negative for occult blood. EXTREMITIES: Nontender. IMPRESSION: 1. 62-year-old menopausal female with normal gynecologic exam. PLAN: 1. Pap smear was performed. 2. Self breast awareness was discussed with the patient. 3. The patient had a bilateral screening mammogram on 07/26/2018 and had a right breast workup which recommends a right diagnostic mammogram in January 2019. The order slip for this was given to the patient. 4. Osteoporosis prevention was discussed. I have recommended bone density screening since she has not had this done. She states she would like to have this done at the time of her January follow-up mammogram. The bone density order was placed on the mammogram order. 5. She will return in one year.
== END ==
LOC: WWCWWP 14:30
PROVIDERS: ATTEND Obstetrics & Gynecology
DX: Z53.9 Procedure and treatment not carried out, unspecified reason (principal)

== ENCOUNTER → 2019-03-05 | Outpatient (CLI) | payer OTHER ==
--- NOTE | 2019-03-05 11:49 | MM ---
Reason for exam: follow-up at short interval from prior study. Last mammogram was performed 7 months ago. History: Patient is postmenopausal. Family history of breast cancer in maternal aunt at age 50 and breast cancer in maternal aunt at age 65. Physical Findings: Nurse did not find any significant physical abnormalities on exam. MG 3D Diag Mammo W/Cad RT CC, MLO, and LM view(s) were taken of the right breast. Prior study comparison: August 09, 2018, right breast MG 3d work up w/cad RT. July 26, 2018, bilateral MG 3d screening mammo w/cad. The breast tissue is heterogeneously dense. This may lower the sensitivity of mammography. Finding: There are typically benign round, regional calcifications in the right breast. No significant changes in finding since August 09, 2018 and July 26, 2018. These results were verbally communicated with the patient and result sheet given to the patient on 03/05/19. ASSESSMENT: Benign, BI-RAD 2 RECOMMENDATION: Return to routine screening mammogram schedule for both breasts. Back on schedule.
== END | disposition home or self-care (01) ==
LOC: RADMAMWWP 10:57
PROVIDERS: ATTEND Family Medicine
DX: R92.1 Mammographic calcification found on diagnostic imaging of breast (principal)
CPT/HCPCS: 77061; 77065

== ENCOUNTER → 2019-12-05 | Outpatient (CLI) | payer OTHER ==
--- NOTE | 2019-12-08 10:08 | MM ---
Reason for exam: screening (asymptomatic). Last mammogram was performed 9 months ago. History: Patient is postmenopausal. Family history of breast cancer in maternal aunt at age 50 and breast cancer in maternal aunt at age 65. Physical Findings: A clinical breast exam by your physician is recommended on an annual basis and results should be correlated with mammographic findings. MG 3D Screening Mammo W/Cad Bilateral CC and MLO view(s) were taken. Prior study comparison: March 05, 2019, right breast MG 3d diag mammo w/cad RT. July 26, 2018, bilateral MG 3d screening mammo w/cad. June 07, 2017, bilateral MG 3d screening mammo w/cad. The breast tissue is heterogeneously dense. This may lower the sensitivity of mammography. Finding: There are typically benign round, regional calcifications in the right breast. Asymmetric breast tissue in the left breast is stable. There is no discrete abnormality. ASSESSMENT: Benign, BI-RAD 2 RECOMMENDATION: Routine screening mammogram of both breasts in 1 year.
== END | disposition home or self-care (01) ==
LOC: RADMAMWWP 13:01
PROVIDERS: ATTEND Family Medicine
DX: Z12.31 Encounter for screening mammogram for malignant neoplasm of breast (principal)
CPT/HCPCS: 77063; 77067